=== PATIENT | female | born 1965 ===

== ENCOUNTER 2016-12-18 11:21 | Outpatient (CLI) | payer MEDICARE ==
--- NOTE | 2016-12-18 16:00 | Mammography Report ---
BILATERAL DIGITAL SCREENING MAMMOGRAM with CAD: 12/18/16 11:21:00 CLINICAL: Baseline screening. COMPARISON:None. FINDINGS: The breasts are heterogeneously dense, which may obscure small masses. No mass, architectural distortion or suspicious calcifications. IMPRESSION: No mammographic evidence of malignancy. BI-RADS CATEGORY: 1 - - Negative RECOMMENDATION: Routine mammographic screening in one year. COMMENT: Patient follow-up letters are generated by our wedgies application. The
== END 2016-12-18 11:22 | disposition home or self-care (01) ==
LOC: SPVIMAG 11:21
PROVIDERS: ATTEND Family Medicine Adult Medicine
DX: Z12.31 Encounter for screening mammogram for malignant neoplasm of breast (principal)
CPT/HCPCS: 77067; G0202